=== PATIENT | female | born 1940 | race Caucasian/White ===

== ENCOUNTER 2017-11-07 08:30 | Inpatient (IN) | payer MEDICARE ==
[~2017-11-07] VITALS: Ht 170.2 cm; Wt 60.1 kg
[~2017-11-07 08:30] MED LIST: AMIODARONE HCL IV NR; AMLO5TAB2 PO; ASPI-1181 PO; ATOR10TA69 PO; CHOL100040 PO; DEXTROSE 5% IV NR; DOCU100C33 PO; DOXY100T2 PO; GLUC100019 PO; LISI-613 PO; METO-409 PO; MULT-950 PO; POTA-79 PO; VIT1TABL6 PO; WATER IV NR
[2017-11-07] MEDS ORDERED: ASPIRIN 325 MG TABLET ONE (08:54)
[2017-11-07] MEDS ORDERED: METOPROLOL TARTRATE 1 MG/ML 5ML VIAL IV ONE ×3 (08:54→11:19)
[2017-11-07 08:57] LABS: RED CELL DISTRIBUTION WIDTH 13.3 % (11.0-15.5)
[2017-11-07 09:00] LABS: APPEARANCE,URINE Cloudy (CLEAR); BILIRUBIN,URINE Negative (NEGATIVE); COLOR,URINE Yellow (YELLOW); GLUCOSE, URINE (UA) Negative (NEGATIVE); KETONES,URINE 15 mg/dL (NEGATIVE); LEUKOCYTE ESTERASE ,URINE Small (NEGATIVE); NITRATE,URINE Negative (NEGATIVE); OCCULT BLOOD,URINE Negative (NEGATIVE); PROTEIN,URINE Trace (NEGATIVE); UROBILINOGEN,URINE 0.2 mg/dL (0.2-1.0)
[2017-11-07 09:07] LABS: CREATININE 0.8 mg/dL (0.5-1.5); POTASSIUM 3.7 mmol/L (3.5-5.1)
[2017-11-07 09:13] LABS: ALBUMIN 4.5 g/dL (3.5-5.0); BILIRUBIN,TOTAL 1.3 mg/dL (0.2-1.0); TOTAL PROTEIN, SERUM 7.5 g/dL (6.0-8.3)
[2017-11-07 09:23] LABS: B-TYPE NATRIURETIC PEPTIDE 113 pg/mL (0-100)
[2017-11-07 09:28] LABS: BASOPHILS % (AUTO) 0.5 % (0.0-5.0); EOSINOPHILS % (AUTO) 0.4 % (0.0-8.0); HEMATOCRIT 50.3 % (36-48); LYMPHOCYTES % (AUTO) 16.9 % (21.0-51.0); MEAN CORPUSCULAR HEMOGLOBIN 32.3 pg (27.0-33.0); MEAN CORPUSCULAR HGB CONC 34.3 g/dL (32.0-36.0); MEAN CORPUSCULAR VOLUME 94.1 fL (79-99); MONOCYTES % (AUTO) 7.5 % (3.0-13.0); NEUTROPHILS % (AUTO) 74.7 % (40.0-77.0); PLATELET COUNT (AUTO) 112 K/uL (130-400); RED BLOOD CELL COUNT(AUTO) 5.34 MIL/uL (4.00-5.50); WHITE BLOOD COUNT (AUTO) 7.6 K/uL (4.8-10.8)
[2017-11-07 09:30] LABS: INR 1.01 (0.85-1.15); PROTHROMBIN TIME 10.6 SEC (9.6-11.6)
[2017-11-07 09:35] LABS: BACTERIA,URINE Few /HPF (None Seen); RBC,URINE 0-1 /HPF (0-1)
[2017-11-07 11:45] VITALS: BP 159/91
[2017-11-07] MEDS ORDERED: ACETAMINOPHEN 325 MG TAB PO PRN (12:45)
[2017-11-07] MEDS ORDERED: ONDANSETRON HCL 4 MG/2 ML VIAL IVP PRN (12:45)
[2017-11-07] MEDS ORDERED: LACTULOSE 20 GM/30 ML UDCUP PO PRN (12:45)
[2017-11-07] MEDS ORDERED: MORPHINE SULFATE 4 MG/1ML SYG IVP PRN (12:45)
[2017-11-07] MEDS ORDERED: CLONIDINE HCL 0.1 MG TABLET PO PRN (12:45)
[2017-11-07] MEDS ORDERED: NITROGLYCERIN 0.4 MG SL TAB SL PRN (13:00)
[2017-11-07] MEDS ORDERED: PHARMACY COMMUNICATION MISC SCH (15:45)
[2017-11-07 16:00] VITALS: BP 124/97
[2017-11-07 17:23] LABS: CREATINE KINASE MB 1.4 ng/mL (0.5-3.6); TROPONIN I 0.05 ng/mL (0.00-0.06)
[2017-11-07] MEDS ORDERED: MAGNESIUM CITRATE 296 ML SOLUTION PO SCH (18:00)
[2017-11-07] MEDS: METOPROLOL TARTRATE 50 MG TAB PO SCH (19:51)
[2017-11-07] MEDS: ATORVASTATIN CALCIUM 10 MG TABLET PO SCH (19:51)
[2017-11-07 19:57] VITALS: BP 147/76
[2017-11-07] MEDS ORDERED: ESOM40CA54 PO (20:00)
[2017-11-07] MEDS ORDERED: DONE10TA43 PO (20:00)
[2017-11-07] MEDS ORDERED: MEMA7CAP2 PO (20:00)
[2017-11-07] MEDS: DONEPEZIL HCL 5 MG TAB PO SCH (20:46)
[2017-11-08] VITALS (17 sets, daily range): BP systolic 113–186; BP diastolic 53–99
[2017-11-08 01:15] LABS: CREATININE 0.6 mg/dL (0.5-1.5); POTASSIUM 3.4 mmol/L (3.5-5.1)
[2017-11-08 01:33] LABS: CREATINE KINASE MB 1.3 ng/mL (0.5-3.6); CREATINE KINASE, TOTAL 41 U/L (21-232); MYOGLOBIN 38 ng/mL (10-92); TROPONIN I < 0.04 ng/mL (0.00-0.06)
[2017-11-08] MEDS ORDERED: AMIODARONE HCL 300 MG in DEXTROSE 5%-WATER 250 ML IV SCH (06:00)
[2017-11-08] MEDS ORDERED: AMIODARONE HCL 50 MG/ML 3 ML VIAL IV ONE (07:00)
[2017-11-08] MEDS ORDERED: METOPROLOL TARTRATE 1 MG/ML 5ML VIAL IV PRN (08:45)
[2017-11-08] MEDS: AMIODARONE HCL 200 MG TABLET PO SCH (08:49)
[2017-11-08] MEDS: METOPROLOL TARTRATE 50 MG TAB PO SCH ×2 (08:49→22:58)
[2017-11-08] MEDS: AMLODIPINE BESYLATE 5 MG TAB PO SCH (08:49)
[2017-11-08] MEDS: LISINOPRIL 40 MG TABLET PO SCH (08:49)
[2017-11-08] MEDS: DOCUSATE SODIUM 100 MG CAP PO SCH (08:56)
[2017-11-08] MEDS: GLUCOSAMINE-CHONDROITIN PO SCH (08:56)
[2017-11-08] MEDS: ASPIRIN 325 MG TABLET PO SCH (08:56)
[2017-11-08] MEDS: LMEFOLATE CA PO SCH (08:56)
[2017-11-08] MEDS: **HM**(Cholecalciferol (Vitamin D3) (Vitamin D3) 1,000 UNIT) PO SCH (08:56)
[2017-11-08] MEDS: B2 PO SCH (08:56)
[2017-11-08] MEDS: VIT B12 PO SCH (08:56)
[2017-11-08] MEDS: VIT B6 PO SCH (08:56)
[2017-11-08] MEDS: PANTOPRAZOLE SODIUM 40 MG TABLET.DR PO SCH (08:57)
[2017-11-08] MEDS: MULTIVITAMIN TABLET PO SCH (08:57)
[2017-11-08] MEDS: POTASSIUM CHLORIDE 20 MEQ ERTAB PO SCH (08:57)
[2017-11-08] MEDS: MEMANTINE HCL 7 MG PO SCH (09:00)
[2017-11-08] MEDS ORDERED: AMLODIPINE BESYLATE 5 MG TAB PO SCH (09:00)
[2017-11-08] MEDS ORDERED: LISINOPRIL 20 MG TABLET PO SCH (09:00)
[2017-11-08] MEDS ORDERED: MEPERIDINE-PF 50 MG/ML SYG ONE (18:14)
[2017-11-08] MEDS ORDERED: MIDAZOLAM HCL 1 MG/ML 2ML VIAL ONE (18:15)
[2017-11-08] MEDS: DONEPEZIL HCL 5 MG TAB PO SCH (22:58)
[2017-11-08] MEDS: ATORVASTATIN CALCIUM 10 MG TABLET PO SCH (22:58)
[2017-11-09 03:54] VITALS: BP 163/69
[2017-11-09 04:11] LABS: CREATININE 0.6 mg/dL (0.5-1.5); POTASSIUM 3.5 mmol/L (3.5-5.1)
[2017-11-09 07:00] VITALS: BP 158/75
[2017-11-09] MEDS: LMEFOLATE CA PO SCH (09:00)
[2017-11-09] MEDS: VIT B12 PO SCH (09:00)
[2017-11-09] MEDS: B2 PO SCH (09:00)
[2017-11-09] MEDS: VIT B6 PO SCH (09:00)
[2017-11-09] MEDS: DOCUSATE SODIUM 100 MG CAP PO SCH (10:16)
[2017-11-09] MEDS: AMIODARONE HCL 200 MG TABLET PO SCH (10:17)
[2017-11-09] MEDS: LISINOPRIL 40 MG TABLET PO SCH (10:17)
[2017-11-09] MEDS: METOPROLOL TARTRATE 50 MG TAB PO SCH (10:18)
[2017-11-09] MEDS: PANTOPRAZOLE SODIUM 40 MG TABLET.DR PO SCH (10:18)
[2017-11-09] MEDS: AMLODIPINE BESYLATE 5 MG TAB PO SCH (10:19)
[2017-11-09] MEDS: ASPIRIN 325 MG TABLET PO SCH (10:19)
[2017-11-09] MEDS: MULTIVITAMIN TABLET PO SCH (10:19)
[2017-11-09] MEDS: MEMANTINE HCL 7 MG PO SCH (10:20)
[2017-11-09] MEDS: **HM**(Cholecalciferol (Vitamin D3) (Vitamin D3) 1,000 UNIT) PO SCH (10:20)
[2017-11-09] MEDS: GLUCOSAMINE-CHONDROITIN PO SCH (10:21)
[2017-11-09] MEDS: POTASSIUM CHLORIDE 20 MEQ ERTAB PO SCH (10:21)
[2017-11-09 11:00] VITALS: BP 167/81
== END 2017-11-09 15:42 | disposition home or self-care (01) | DRG 394 ==
LOC: EDH 08:30 → EDHIP 10:45 → OBSVTOIN 10:45 → 2AH 11:37
PROVIDERS: ADMIT Family Medicine; ATTEND Family Medicine
PROC: 0DBH8ZZ Excision of Cecum, Via Natural or Artificial Opening Endoscopic (ICD-10-PCS; principal; 2017-11-08)
DX: K63.5 Polyp of colon (principal); I48.92 Unspecified atrial flutter; I48.0 Paroxysmal atrial fibrillation; I49.5 Sick sinus syndrome; E11.9 Type 2 diabetes mellitus without complications; F03.90 Unspecified dementia, unspecified severity, without behavioral disturbance, psychotic disturbance, mood disturbance, and anxiety; E78.5 Hyperlipidemia, unspecified; I10 Essential (primary) hypertension; I35.1 Nonrheumatic aortic (valve) insufficiency; I45.9 Conduction disorder, unspecified; K64.0 First degree hemorrhoids; R29.6 Repeated falls; Z79.899 Other long term (current) drug therapy; Z95.0 Presence of cardiac pacemaker; Z88.0 Allergy status to penicillin
CPT/HCPCS: 36415; 71045; 80048; 80053; 81001; 82550; 82553; 83874; 83880; 84484; 85025; 85610; 85730; 88305; 93005; 99291; J0282; J2175; J2250; J3490; J7060